=== PATIENT | male | born 1960 | race Caucasian/White ===

== ENCOUNTER 2018-11-17 17:42 | Emergency (ER) | payer SELFPAY ==
[2018-11-17] MEDS ORDERED: Fentanyl 100 MCG/2 ML VIAL ONE (18:32)
[2018-11-17] MEDS ORDERED: PROPOFOL 20 ML ONE (19:01)
--- NOTE | 2018-11-17 19:19 | RAD ---
LEFT SHOULDER TWO VIEWS: 11/17/18 HISTORY: Reduction of shoulder dislocation. FINDINGS: The acromioclavicular and glenohumeral alignment are maintained. No acute fracture or dislocation. Pa renchymal opacity of the left lung base obscures the left hemidiaphragm. IMPRESSION: No acute osseous abnormalities are demonstrated. Left lung base parenchymal opacity obscuring the left hemidiaphragm which is likely elevated. Clinica l correlation regarding other left lung signs and symptoms is required. Please consider upright and P A lateral views of the chest for further evaluation . POS: [facility]
== END 2018-11-17 20:24 | disposition home or self-care (01) ==
LOC: ERS 17:42
DX: S43.005A Unspecified dislocation of left shoulder joint, initial encounter (principal); W19.XXXA Unspecified fall, initial encounter; Y92.007 Garden or yard of unspecified non-institutional (private) residence as the place of occurrence of the external cause; Z86.73 Personal history of transient ischemic attack (TIA), and cerebral infarction without residual deficits
CPT/HCPCS: 23650; 99152; J2704; J3010